=== PATIENT | male | born 1945 | race Caucasian/White ===

== ENCOUNTER → 2016-09-11 | Outpatient (CLI) | payer OTHER ==
[~2016-09-11] MED LIST: GADAVIST IV PRN; LPT10 PO; SITA1TAB21 PO
--- NOTE | 2016-09-11 11:23 | DIAGNOSTIC IMAGING REPORT ---
MRI left shoulder LEFT UPPER EXT JOINT COMBO CLINICAL HISTORY: SHOULDER PAIN posttraumatic pain TECHNIQUE: Multi axial MRI acquisition pre and post contrast administration COMPARISON STUDY: None FINDINGS: Signal characteristics the osseous structures indicate mild degenerative subchondral cyst formation lateral aspect humeral head. Signal characteristics of all remaining osseous structures are unremarkable. There is moderate hypertrophic change of the acromioclavicular joint. There is a trace amount of edematous change and/or fluid within the acromioclavicular joint as well as in the subdeltoid bursa. Evaluation of the rotator cuff demonstrates moderate tendinopathy of the subscapularis tendon with a small partial thickness tear at its superior surface. The supraspinatus tendon shows evidence for considerable tendinopathy. There is a full-thickness tear at its anterior and/or leading-edge. There is no evidence for musculotendinous retraction. Findings of mild impingement due to hypertrophic change of the acromioclavicular joint. The infraspinatus tendon appears to be intact. Glenoid labrum shows evidence for truncation at the posterior labrum. There is a small hairline tear of the central aspect of the anterior labrum. Biceps tendon is intact within the bicipital groove. A small joint effusion is present. IMPRESSION: 1. Full-thickness tear anterior margin supraspinatus tendon 2. Partial thickness tear subscapularis tendon 3. Tendinopathy of the subscapularis and supraspinatus tendons. 4. Hypertrophic change acromioclavicular joint creating mild impingement. 5. 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 09/11/2016 11:22 AM Dictated Date/Time: 09/11/2016 11:13 AM
== END | disposition home or self-care (01) ==
LOC: C.MRI 09:09
PROVIDERS: ATTEND Internal Medicine
DX: Z91.81 History of falling (principal); M25.512 Pain in left shoulder